=== PATIENT | female | born 1980 | race Caucasian/White ===

== ENCOUNTER 2017-05-26 17:59 | Emergency (ER) | payer OTHER ==
[~2017-05-26] VITALS: Ht 167.6 cm; Wt 79.4 kg
[~2017-05-26 17:59] MED LIST: LEVAQUIN500 M1 PO; PROAIR HFA8.5 GM INH; TESSALON PERLE100 M1 PO; ZOFRAN ODT4 M1 SL
[2017-05-26] MEDS ORDERED: PREDNISONE10 M2 PO (18:54)
[2017-05-26] MEDS ORDERED: METHOTREXA25 MG/1 M5 IM (18:55)
[2017-05-26] MEDS ORDERED: HUMIRA40 MG/0.1 IM (18:55)
[2017-05-26] MEDS ORDERED: FLUOXETINE HCL40 M1 PO (18:56)
[2017-05-26] MEDS ORDERED: METOPROLOL SUCC50 M2 PO (18:56)
[2017-05-26] MEDS ORDERED: FOLIC ACID1 M1 PO (18:56)
[2017-05-26] MEDS ORDERED: [UNRECOGNIZED DRUG - OTHER] PO (18:56)
[2017-05-26] MEDS ORDERED: CLARITIN10 M1 PO (18:57)
[2017-05-26] MEDS ORDERED: SEASONIQUE 0.11 EACH PO (18:57)
[2017-05-26] MEDS ORDERED: DUREZOL5 ML OU (18:58)
[2017-05-26] MEDS ORDERED: ISTALOL2.5 ML OU (18:59)
[2017-05-26] MEDS ORDERED: SIMBRINZA 1%-0.28 ML OU (18:59)
[2017-05-26] MEDS ORDERED: FLUTICASONE PRO16 GM NASB (18:59)
--- NOTE | 2017-05-26 19:25 | ED GENERAL ADULT ---
History of Present Illness General Chief Complaint: General Adult Stated Complaint: PT WAS HERE LST WEEK COUGHING SHAKING,CHEST TIGTH Source: patient Exam Limitations: no limitations Vital Signs & Intake/Output Vital Signs & Intake/Output Vital Signs Date Time Temp Pulse Resp B/P B/P Pulse O2 O2 Flow FiO2 Mean Ox Delivery Rate 05/27 0110 97.5 87 18 138/97 96 Room Air 05/26 2314 114 149/95 05/26 2159 98.5 114 20 144/95 98 Room Air 05/26 1810 97.9 131 18 126/97 98 Room Air ED Intake and Output 05/27 0000 05/26 1200 Intake Total 0 Output Total Balance 0 Intake, Oral 0 Patient 175 lb Weight Weight Reported by Patient Measurement Method Allergies Coded Allergies: sulfamethoxazole (From BACTRIM) (DIARRHEA 05/26/17) trimethoprim (From BACTRIM) (DIARRHEA 05/26/17) Reconcile Medications Adalimumab (Humira) 40 MG/0.8 ML SYRINGEKIT 40 MG IM QSUN PSORIATIC ARTHRITIS (Reported) Albuterol Sulfate (Proair Hfa) 90 MCG HFA.AER.AD 2-4 PUF INH Q4-6 PRN PRN shortness of breath, cough Benzonatate (Tessalon Perle) 100 MG CAPSULE 1 CAP PO TID PRN cough Brinzolamide/Brimonidine Tart (Simbrinza 1%-0.2% Eye Drops) 1 %-0.2 % DROPS.SUSP 1 DROP OU DAILY EYE PRESSURE (Reported) Difluprednate (Durezol) 0.05 % DROPS 1 DROP OU 6XDAILY ARTHRITIS IN EYE ( Reported) Fluoxetine HCl 40 MG CAPSULE 1 CAP PO BID MENTAL HEALTH (Reported) Fluticasone Propionate 50 MCG/ACTUATION SPRAY.SUSP 2 SPRAY NASB DAILY ALLERGIES (Reported) Folic Acid 1 MG TABLET 1 TAB PO DAILY SUPPLEMENT (Reported) L-Norgest/E.estradion-E.estrad (Seasonique 0.15-0.03-0.01 Tab) 0.15 MG-30 MCG ( 84)/10 MCG (7) TBDSPK.3MO 1 TAB PO DAILY CONTROL (Reported) Levofloxacin (Levaquin) 500 MG TABLET 1 TAB PO DAILY BRONCHITIS Loratadine (Claritin) 10 MG TABLET 1 TAB PO DAILY ALLERGIES (Reported) Methotrexate Sodium (Methotrexate) 25 MG/ML VIAL 1 ML IM QWED PSORIATIC ARTHRITIS (Reported) Metoprolol Succinate 50 MG TAB.ER.24H 1 TAB PO DAILY HEART/BP (Reported) Ondansetron (Zofran Odt) 4 MG TAB.RAPDIS 1 TAB SL TID PRN NAUSEA Potassium Chloride 20 MEQ TAB.ER.PRT 2 TAB PO DAILY low potassium six tabs Prednisone 10 MG TABLET 1 TAB PO DAILY PSORIATIC ARTHRITIS (Reported) Timolol Maleate (Istalol) 0.5 % DROP.DAILY 1 DROP OU DAILY ARTHRITIS IN EYE ( Reported) Tolmetin Sodium 600 MG TABLET 1 TAB PO TID PSORIATIC ARTHRITIS (Reported) Triage Note: PT SEEN HERE LAST WEEK FOR SAME. PT STATES HER COUGH CONT. PT WAS DIAGNOSED WITH BRONCHITIS LAST WEEK. PT CONT WITH DRY COUGH Triage Nurses Notes Reviewed? yes : No Patient currently breastfeeds: No HPI: 40 yo F presents to the ED for complains of chest heaviness since this morning. Her symptoms have been nonprogressive and constant. She also reports having fever, chills and a cough for the past 4 days. She came in to the ED on Wednesday and was prescribed a course of antibiotics which she has been compliant with. She mentions some history of heartburn due to esophageal rings. (BRAIN WEST MD) Past History Travel History Traveled to [place] past 21 day No Medical History Any Pertinent Medical History? see below for history EENT: glaucoma Cardiovascular: hypertension, hyperlipidemia Gastrointestinal: esophageal rings Musculoskeletal: PSORIATIC ARTHRITIS Surgical History Surgical History: hip replacement Psychosocial History What is your primary language Guatemalan Tobacco Use: Never used ETOH Use: denies use Illicit Drug Use: denies illicit drug use Family History Hx Contributory? No (BRAIN WEST MD) Review of Systems Review of Systems Constitutional: Reports: chills, fever. Respiratory: Reports: short of breath (exertional). Cardiovascular: Reports: palpitations. GI: Reports: abdominal pain, constipation, diarrhea. Neurological/Psychological: Reports: headache. (BRAIN WEST MD) Physical Exam Physical Exam General Appearance: well developed/nourished, mild distress Head: atraumatic, normal appearance Eyes: Bilateral: normal appearance. Respiratory: normal breath sounds Cardiovascular: regular rate/rhythm Gastrointestinal: tenderness (diffuse) Core Measures ACS in differential dx? Yes CVA/TIA Diagnosis: No Severe Sepsis Present: No Septic Shock Present: No (BRAIN WEST MD) Progress Differential Diagnoses I considered the following diagnoses in my evaluation of the patient: Plan of Care: Orders Procedure Date/time Status TROPONIN LEVEL 05/26 2230 Complete EKG 05/26 2230 Active D-DIMER 05/26 1936 Complete TROPONIN LEVEL 05/26 1922 Complete COMPREHENSIVE METABOLIC PANEL 05/26 1922 Complete CBC WITHOUT DIFFERENTIAL 05/26 1922 Complete Laboratory Tests 05/26/172229: Troponin I < 0.01 05/26/171929: Anion Gap 11, Estimated GFR > 60, BUN/Creatinine Ratio 8.6, Glucose 83, Calcium 9.1, Total Bilirubin 0.6, AST 47 H, ALT 47, Alkaline Phosphatase 75, Troponin I < 0.01, Total Protein 6.9, Albumin 3.8, Globulin 3.1, Albumin/Globulin Ratio 1.2 , D-Dimer High Sensitivty 220, CBC w Diff NO MAN DIFF REQ, RBC 4.86, MCV 88.4, MCH 29.5, RDW 16.6 H, MPV 7.3 L, Gran % 34.4 L, Lymphocytes % 50.0, Monocytes % 14.9 H, Eosinophils % 0.4, Basophils % 0.3, Absolute Granulocytes 3.1, Absolute Lymphocytes 4.5 H, Absolute Monocytes 1.3 H, Absolute Eosinophils 0, Absolute Basophils 0, PUBS MCHC 33.4 Initial ED EKG: normal axis (BRAIN WEST MD) Departure Departure Disposition: HOME OR SELF CARE Condition: Stable Clinical Impression Primary Impression: Chest wall pain Referrals: WILFREDO RICKETTS,ANEL BROWN (PCP/Family) Departure Forms: Customer Survey General Discharge Information Prescriptions: Current Visit Scripts Potassium Chloride 2 TAB PO DAILY #6 TAB six tabs (BRAIN WEST MD) Resident Co-Sign Statement Statement: ED Attending supervision documentation- [x] I saw and evaluated the patient. I have also reviewed all the pertinent lab results and diagnostic results. I agree with the findings and the plan of care as documented in the Resident's documentation. pt with reproducible chest wall tenderness, non acute ekg's x 2, trop neg x 2. pt safe for discharge and will complete antibiotic course of levaquin. pt also to complete 3 day of potassium supplements and follow up with pmd. [] I have reviewed the ED Record and agree with the Resident's documentation. [] Additions or exceptions (if any) to the Resident's note and plan are summarized below: [] (JOSEPH LONDON,FELECIA Epperson) Critical Care Note Critical Care Note Critical Care Time: non-applicable (BRAIN WEST MD) ED Attending Observation Initial Observation Note: I have seen and personally examined SHAWANDA LUND on 05/27/17 at 0052. I agree with the current emergency department documentation. The disposition (admission or discharge) is uncertain at this time, she needs a period of observation for the following reason(s): The ED Nurse caring for this patient has been personally informed as to what the patient is being observed for. (BRAIN WEST MD)
[2017-05-26 19:52] LABS: ABSOLUTE BASOPHIL COUNT 0 /CUMM (0.0-0.2); ABSOLUTE EOSINOPHIL COUNT 0 /CUMM (0.0-0.7); ABSOLUTE GRANULOCYTE CT 3.1 /CUMM (1.4-6.5); ABSOLUTE MONOCYTE COUNT 1.3 /CUMM (0.10-0.60); BASOPHIL % 0.3 % (0.0-2.0); EOSINOPHIL % 0.4 % (0-5); GRANULOCYTE % 34.4 % (42.2-75.2); MEAN CORPUSCULAR HGB 29.5 PG (27.0-31.0); MEAN CORPUSCULAR HGB CONC 33.4 G/DL (33.0-37.0); MEAN CORPUSCULAR VOLUME 88.4 FL (81.0-99.0); MEAN PLATELET VOLUME 7.3 FL (7.4-10.4); PLATELET COUNT 281 /CUMM (130-400); RBC DISTRIBUTION WIDTH 16.6 % (11.5-14.5); RED BLOOD CELL CT 4.86 /CUMM (4.20-5.40)
[2017-05-26 19:55] LABS: ABSOLUTE LYMPH COUNT 4.5 /CUMM (1.2-3.4)
[2017-05-26] MEDS ORDERED: POTASSIUM CHLO20 ME2 PO (22:20)
[2017-05-27 01:10] VITALS: BP 138/97
[2017-05-29] MEDS ORDERED: ZOFRAN ODT4 M1 SL (00:37)
== END 2017-05-27 01:12 ==
LOC: ERH 17:59
DX: R07.89 Other chest pain (principal)
CPT/HCPCS: 93005; 93010; J3101